=== PATIENT | female | born 1960 | race Caucasian/White ===

== ENCOUNTER → 2017-06-12 | Outpatient (CLI) | payer OTHER ==
[2017-01-13 12:43] VITALS: BMI 26.9
[~2017-06-12] MED LIST: ACE325 PO; ALB18R INH; ASPI-764 PO; AZIT-18 PO; CALC-547 PO; CALC600T63 PO; CINN500C12 PO; ESTR-43 PO; EZET1TAB70 PO; FEXO1TAB63 PO; FLUO-177 PO; FLUT16SP19 NS; GLIM1TAB25 PO; IBUP200C71 PO; LORA-629 PO; LOSA-44 PO; LOSA25TA51 PO; MOMR NS; OMEP-125 PO; OXYC-869 PO; PANT40TA65 PO; PRED20TA6 PO; PROM5SYR PO; RABE20TA33 PO; SIMV-54 PO; SITA1TAB13 PO
--- NOTE | 2017-06-12 15:59 | RADIOLOGY IMAGING REPORT ---
FACILITY: [facility] PATIENT NAME: SHANT LEON : [id number] MR: [id number] V: [id number] EXAM DATE: [id number] ORDERING PHYSICIAN: ESTEFANY MAYEN TECHNOLOGIST: Elise Schmidt PROCEDURE:BILATERAL DIGITAL SCREENING MAMMOGRAM WITH CAD ASSISTED INTERPRETATION & 3D TOMOSYNTHESIS COMPARISON:05/06/16 & priors back to 11/07/2010 INDICATIONS:screening FINDINGS: Breasts have scattered fibroglandular parenchymal densities. There are no mammographic findings concerning for malignancy. There is no significant interval change. DIAGNOSTIC CATEGORY 1--NEGATIVE. RECOMMENDATIONS: ROUTINE MAMMOGRAM AND CLINICAL EVALUATION IN 1 YR. IMPRESSION: BIRADS 1: Negative. Dictated by: Ronnell Munoz on 06/12/2017 at 15:31 Transcribed by: NATALY on 06/12/2017 at 15:35 Approved by: Ronnell Munoz on 06/12/2017 at 15:58 [facility]
== END ==
LOC: MAMO 00:44
PROVIDERS: ATTEND Family Medicine
DX: Z12.31 Encounter for screening mammogram for malignant neoplasm of breast (principal)
CPT/HCPCS: 77063; 77067

== ENCOUNTER 2018-01-21 00:14 | Day surgery (SDC) | payer OTHER ==
[2017-01-13 12:43] VITALS: Ht 170.2 cm; Wt 81.2 kg
[2018-01-21] VITALS (7 sets, daily range): BP systolic 117–134; BP diastolic 80–97
[~2018-01-21] VITALS: Ht 170.2 cm; Wt 81.2 kg
[~2018-01-21 00:14] MED LIST changes: +IBUP-136 PO; +IBUP-56 PO; -IBUP200C71 PO
[2018-01-21] MEDS ORDERED: NORMOSOL R SOLN(*) 1000 ML BAG 1,000 ML IV PRN (08:30)
[2018-01-21] MEDS ORDERED: LIDOCAINE/SOD BICARB 8.4% SYR ID ONE (08:30)
[2018-01-21] MEDS ORDERED: PROPOFOL EMUL(*) 10MG/ML 20 ML 20 ML ONE ×2 (08:51→09:23)
== END 2018-01-21 10:47 | disposition home or self-care (01) ==
LOC: OR 00:14
PROVIDERS: ATTEND Internal Medicine Gastroenterology
DX: K20.9 Esophagitis, unspecified (principal); K44.9 Diaphragmatic hernia without obstruction or gangrene; K22.2 Esophageal obstruction; E11.9 Type 2 diabetes mellitus without complications
CPT/HCPCS: 36416; 43239; 43248; 82948; 88305; 88313; 88344; J2704

== ENCOUNTER → 2018-07-01 | Outpatient (CLI) | payer OTHER ==
[2017-01-13 12:43] VITALS: BMI 26.9
--- NOTE | 2018-07-02 09:12 | RADIOLOGY IMAGING REPORT ---
FACILITY: [facility] - [place] PATIENT NAME: SHANT LEON : [id number] MR: [id number] V: [id number] EXAM DATE: ORDERING PHYSICIAN: ESTEFANY MAYEN TECHNOLOGIST: Sarah De Santiago PROCEDURE:BILATERAL DIGITAL SCREENING MAMMOGRAM WITH CAD ASSISTED INTERPRETATION & 3D TOMOSYNTHESIS COMPARISON:Prior mammograms 06/12/17, 05/06/16, 04/04/15, 03/13/14, 03/01/13, 02/17/12. INDICATIONS:SCREENING FINDINGS: There are areas of scattered fibroglandular densities seen throughout the breasts. The parenchymal pattern has remained stable allowing for difference in mammographic technique & patient positioning. DIAGNOSTIC CATEGORY 1--NEGATIVE. RECOMMENDATIONS: ROUTINE MAMMOGRAM AND CLINICAL EVALUATION. IMPRESSION: BIRADS 1: Negative. No significant abnormality is seen. Dictated by: Magali Lao M.D. on 07/01/2018 at 17:23 Transcribed by: OBED on 07/02/2018 at 8:43 Approved by: Magali Lao M.D. on 07/02/2018 at 9:11 [facility]
== END ==
LOC: MAMO 00:57
PROVIDERS: ATTEND Family Medicine
DX: Z12.31 Encounter for screening mammogram for malignant neoplasm of breast (principal)
CPT/HCPCS: 77063; 77067